=== PATIENT | male | born 1985 | race Caucasian/White ===

== ENCOUNTER 2018-11-10 11:57 | Emergency (ER) | payer SELFPAY ==
--- NOTE | 2018-11-10 12:31 | EDM.PDOC ---
ED HPI GENERAL MEDICAL PROBLEM - General Chief Complaint: Laceration Stated Complaint: LEFT HAND/FINGER INJURY Time Seen by Provider: 11/10/18 12:08 Source of Information: Reports: Patient, RN Notes Reviewed History Limitations: Reports: No Limitations - History of Present Illness INITIAL COMMENTS - FREE TEXT/NARRATIVE: Patient is a 33-year-old male who presents to the ED for the evaluation of a laceration to his left middle finger. The patient notes that the injury happened this last around noon. He was sweeping out an old barn, when the wooden handle of the broom broke, and ended up injuring his left middle finger. This is on the anterior aspect, there are 2 lacerations. He cleaned it out yesterday, and finally got it to stop bleeding yesterday as well. Today he comes to the ER for evaluation of his injury. There is no active bleeding, the area is swollen however there is no redness. The patient states that it is painful. He is able to move his finger. He believes he is up-to-date on his tetanus shot roughly 5 years ago. He has not taken any Tylenol or ibuprofen for pain relief. The patient notes he is right-hand dominant. Left Finger-Middle Pain Score (Numeric/FACES): 4 - Related Data Allergies Allergy/AdvReac Type Severity Reaction Status Date / Time No Known Allergies Allergy Verified 11/10/18 12:09 Home Meds: Home Meds . [No Known Home Meds] 11/10/18 [History] Past Medical History - Past Surgical History GI Surgical History: Reports: Appendectomy Musculoskeletal Surgical History: Reports: Other (See Below) Other Musculoskeletal Surgeries/Procedures:: left thumb reconstructive surgery d /t tendon being severed Social & Family History - Tobacco Use Smoking Status *Q: Current Every Day Smoker Years of Tobacco use: 15 Packs/Tins Daily: 0.5 - Caffeine Use Caffeine Use: Reports: Coffee, Energy Drinks, Soda, Tea - Recreational Drug Use Recreational Drug Use: Yes Recreational Drug Type: Reports: Marijuana/Hashish Recreational Drug Use Frequency: Daily ED ROS GENERAL - Review of Systems Review Of Systems: See Below Constitutional: Reports: No Symptoms HEENT: Reports: No Symptoms Respiratory: Reports: No Symptoms Cardiovascular: Reports: No Symptoms Endocrine: Reports: No Symptoms GI/Abdominal: Reports: No Symptoms : Reports: No Symptoms Musculoskeletal: Denies: Joint Pain Skin: Reports: Wound (2 wounds to anterior left 3rd digit) Neurological: Denies: Numbness, Tingling Psychiatric: Reports: No Symptoms Hematologic/Lymphatic: Reports: No Symptoms Immunologic: Reports: No Symptoms ED EXAM, SKIN/RASH Exam: See Below Exam Limited By: No Limitations General Appearance: Alert, WD/WN, No Apparent Distress Respiratory/Chest: No Respiratory Distress, Lungs Clear, Normal Breath Sounds, No Accessory Muscle Use, Chest Non-Tender Cardiovascular: Normal Peripheral Pulses, Regular Rate, Rhythm, No Murmur Peripheral Pulses: 3+: Radial (L), Radial (R) Extremities: Normal Capillary Refill, Limited Range of Motion (d/t pain of lacerations) Neurological: Alert, Oriented, Normal Cognition, No Motor/Sensory Deficits Psychiatric: Normal Affect, Normal Mood Skin: Warm, Dry, Normal Color, No Rash, Wound/Incision (2 curvilinear wounds measuring approximately 2cm each. They are healing, but the skin arround appears to be contaminated and dirty. There does not appear to be any broom splinters left in the wound. There is quite a bit of swelling appreciated. He is able to move his finger in all ROM, but is limited d/t pain. No N/T noted.) Course - Vital Signs Last Recorded V/S: Last Vital Signs Temp 98.5 F 11/10/18 12:06 Pulse 81 11/10/18 12:06 Resp 16 11/10/18 12:06 BP 125/87 11/10/18 12:06 Pulse Ox 100 11/10/18 12:06 - Re-Assessments/Exams Free Text/Narrative Re-Assessment/Exam: 11/10/18 12:31 Patient presents to the ED for the evaluation of a laceration of his left third digit. Since this happened at noon on , we will not be able to suture the wounds at this time. He was made aware of this. The wound was examined however and appears to be somewhat dirty or contaminated. I will have the RN irrigate and clean the area as best as she is able and provide the gentleman with an appropriate bandage. I have educated the gentleman on signs and symptoms of infection and what would be cause for return to the ER. He is understanding of this. Departure - Departure Time of Disposition: 12:32 Disposition: Home, Self-Care Condition: Fair Clinical Impression: Multiple lacerations Laceration of left middle finger Qualifiers: Encounter type: initial encounter Damage to nail status: without damage Foreign body presence: unspecified Qualified Code(s): S61.213A - Laceration without foreign body of left middle finger without damage to nail, initial encounter - Discharge Information *PRESCRIPTION DRUG MONITORING PROGRAM REVIEWED*: No *COPY OF PRESCRIPTION DRUG MONITORING REPORT IN PATIENT DAVID: No Instructions: Nonsutured Laceration Care Referrals: PCP,None [Primary Care Provider] - Additional Instructions: You have been evaluated in the ED today for the lacerations on your left middle finger. Unfortunately we were not able to suture these wounds at this visit, as the wounds were already healing and fell out of the window for appropriate suture time. Sutures are recommended to be in place no later than 24 hours after initial injury. Please keep this area as clean and as dry as you can while the wounds are healing. Please keep bandaged and covered if you are in need of using your hands in a dirty environment. You will likely have 2 big scars as results of this injury. It is also unclear if there is some broom splinters left in the wound. There were no obvious signs of any residual material on initial exam of the wound. If you should develop any sort of fever/chills, increased redness, swelling, unbearable pain to the area please seek care for further evaluation as there might be a bacterial infection. Please return to the ER if your symptoms should change or worsen
== END 2018-11-10 13:00 | disposition home or self-care (01) ==
LOC: JD.ED 11:57
DX: S61.213A Laceration without foreign body of left middle finger without damage to nail, initial encounter (principal); F17.210 Nicotine dependence, cigarettes, uncomplicated; Z90.49 Acquired absence of other specified parts of digestive tract; W26.8XXA Contact with other sharp object(s), not elsewhere classified, initial encounter
CPT/HCPCS: 99282; 99283